=== PATIENT | female | born 1945 | race Caucasian/White ===

== ENCOUNTER 2020-12-18 13:12 | Inpatient (IN) | payer MEDICARE, MEDICAID ==
[2020-12-18 14:45] VITALS: BMI 39.9
[2020-12-18] MEDS ORDERED: Ondansetron PF 4 MG/2 ML Vial IVP PRN (16:26)
[2020-12-18] MEDS ORDERED: Dextrose 50% Abboject 50 ML SYRINGE SLOW IVP PRN (16:26)
[2020-12-18] MEDS ORDERED: Dextrose 5% in Water 1,000 ML IV PRN (16:26)
[2020-12-18] MEDS ORDERED: Lorazepam 2 MG/ML VIAL SLOW IVP PRN (16:30)
[2020-12-18] MEDS ORDERED: Potassium Chloride 20 MEQ TAB PO SCH (16:45)
[2020-12-18] MEDS ORDERED: Lorazepam 2 MG/ML VIAL SLOW IVP SCH (17:00)
[2020-12-18 17:51] LABS: Magnesium 1.6 mg/dL (1.6-2.6)
[2020-12-18] MEDS: Arformoterol 15 MCG/2 ML NEB NEB SCH (19:47)
[2020-12-18] MEDS: Budesonide 0.25 MG/2 ML NEB NEB SCH (19:47)
[2020-12-18 20:37] LABS: Hemoglobin A1c 9.4 % (4.0-6.0)
[2020-12-18] MEDS: Loratadine 10 MG TAB PO SCH (22:10)
[2020-12-18] MEDS: guaiFENesin ER 600 MG TAB PO SCH (22:10)
[2020-12-18] MEDS: Montelukast Sodium 10 mg Tablet PO SCH (22:11)
[2020-12-19] MEDS: Acetaminophen 325 MG TAB PO PRN (03:58)
[2020-12-19 04:43] LABS: #Basophils 0.1 10x3/uL (0.0-0.2); #Eosinphils 0.2 10x3/uL (0.0-0.5); #Monocytes 0.8 10x3/uL (0.0-1.1); #Neutrophils 5.5 10x3/uL (1.5-8.4); %Basophils 0.6 % (0.0-2.0); %Lymphocytes 26.5 % (18.0-47.0); %Monocytes 8.8 % (0.0-10.0); %Neutrophils 61.9 % (40.0-75.0); Hemoglobin 13.1 g/dL (12.0-15.5); Mean Corpuscular HGB CONC 32.5 g/dL (32.0-36.0); Mean Corpuscular Volume 89.4 fl (81.6-98.3); Mean Platelet Volume 9.5 fl (7.4-10.4); Platelet Count 316 10x3/uL (150-450); RBC Distribution Width 13.7 % (11.5-14.5); Red Blood Cell (RBC) Count 4.51 10x6/uL (3.90-5.03); White Blood Cell (WBC) Count 8.9 10x3/uL (3.5-10.5)
[2020-12-19 04:59] LABS: BUN (Urea Nitrogen) 34 mg/dL (9.8-20.1); Calc. Creatinine Clearance 69 mL/min (70-130); Calcium 9.6 mg/dL (7.8-10.44); Glucose 259 mg/dL (83-110)
[2020-12-19 05:07] LABS: Anion Gap 20 mmol/L (10-20); Carbon Dioxide 36 mmol/L (23-31); Chloride 83 mmol/L (98-107); Potassium 3.1 mmol/L (3.5-5.1); Sodium 136 mmol/L (136-145)
[2020-12-19] MEDS: Budesonide 0.25 MG/2 ML NEB NEB SCH (06:20)
[2020-12-19] MEDS: Arformoterol 15 MCG/2 ML NEB NEB SCH ×2 (06:20→20:00)
[2020-12-19] MEDS: guaiFENesin ER 600 MG TAB PO SCH ×2 (09:23→23:16)
[2020-12-19] MEDS: Clopidogrel Bisulfate 75 MG TAB PO SCH (09:23)
[2020-12-19] MEDS: Aspirin 81 mg Enteric Coated Tablet PO SCH (09:23)
[2020-12-19] MEDS: Lantus 1000 UNITS/10 ML VIAL SC SCH (09:23)
[2020-12-19] MEDS: Furosemide 40 MG TAB PO SCH (09:23)
[2020-12-19 11:54] LABS: SARS-CoV-2 PCR by NAA Not Detected (NotDetected)
[2020-12-19] MEDS: HumaLOG 300 UNITS/3 ML VIAL SC PRN ×2 (12:26→23:19)
[2020-12-19] MEDS ORDERED: Communication Order-Pharmacy FS ONE (12:56)
[2020-12-19] MEDS ORDERED: Magnesium Oxide 400 MG TAB PO SCH (15:00)
[2020-12-19] MEDS: Potassium Chloride 20 MEQ TAB PO SCH (15:42)
[2020-12-19] MEDS: Enoxaparin Sodium 100 MG/ML SYRINGE SC SCH (23:15)
[2020-12-19] MEDS: Famotidine 20 MG TAB PO SCH (23:15)
[2020-12-19] MEDS: Loratadine 10 MG TAB PO SCH (23:16)
[2020-12-19] MEDS: Montelukast Sodium 10 mg Tablet PO SCH (23:16)
[2020-12-20] MEDS: Acetaminophen 325 MG TAB PO PRN ×2 (00:50→23:07)
[2020-12-20] MEDS ORDERED: Melatonin 3 MG TAB PO SCH ×2 (01:00→23:15)
[2020-12-20] MEDS: Budesonide 0.25 MG/2 ML NEB NEB SCH ×3 (01:00→18:49)
[2020-12-20 04:33] LABS: #Basophils 0.1 10x3/uL (0.0-0.2); #Eosinphils 0.3 10x3/uL (0.0-0.5); #Monocytes 0.8 10x3/uL (0.0-1.1); #Neutrophils 5.1 10x3/uL (1.5-8.4); %Basophils 0.6 % (0.0-2.0); %Monocytes 9.3 % (0.0-10.0); %Neutrophils 56.7 % (40.0-75.0); Hemoglobin 13.4 g/dL (12.0-15.5); Mean Corpuscular HGB CONC 32.4 g/dL (32.0-36.0); Mean Corpuscular Hemoglobin 29.1 pg (27.0-33.0); Mean Corpuscular Volume 89.8 fl (81.6-98.3); Mean Platelet Volume 9.4 fl (7.4-10.4); Platelet Count 327 10x3/uL (150-450); RBC Distribution Width 13.5 % (11.5-14.5); Red Blood Cell (RBC) Count 4.61 10x6/uL (3.90-5.03)
[2020-12-20 04:44] LABS: ALT (SGPT) 24 U/L (8-55); AST (SGOT) 24 U/L (5-34); Albumin 3.5 g/dL (3.4-4.8); Alkaline Phosphatase 79 U/L (40-110); BUN (Urea Nitrogen) 30 mg/dL (9.8-20.1); Bilirubin, Total 0.4 mg/dL (0.2-1.2); Calc. Creatinine Clearance 76 mL/min (70-130); Calcium 9.4 mg/dL (7.8-10.44); Cholesterol 183 mg/dl (< 200 Desired); Globulin 3.5 g/dL (2.4-3.5); Glucose 175 mg/dL (83-110); HDL Cholesterol 26 mg/dL (>60 Neg Risk); LDL Cholesterol, Calculated 119 mg/dL; Magnesium 1.7 mg/dL (1.6-2.6); Triglycerides 190 mg/dL (Less than 150)
[2020-12-20 04:52] LABS: Anion Gap 19 mmol/L (10-20); Carbon Dioxide 35 mmol/L (23-31); Chloride 85 mmol/L (98-107); Sodium 136 mmol/L (136-145)
[2020-12-20] MEDS ORDERED: Budesonide 0.5 MG/2 ML NEB ONE (06:48)
[2020-12-20] MEDS: Arformoterol 15 MCG/2 ML NEB NEB SCH ×2 (06:55→18:49)
[2020-12-20] MEDS: Famotidine 20 MG TAB PO SCH ×2 (08:01→23:06)
[2020-12-20] MEDS: guaiFENesin ER 600 MG TAB PO SCH ×2 (08:01→23:06)
[2020-12-20] MEDS: Furosemide 40 MG TAB PO SCH (08:01)
[2020-12-20] MEDS: Enoxaparin Sodium 100 MG/ML SYRINGE SC SCH (08:01)
[2020-12-20] MEDS: Ezetimibe 10 MG TAB PO SCH (08:01)
[2020-12-20] MEDS: Potassium Chloride 20 MEQ TAB PO SCH ×2 (08:01→16:35)
[2020-12-20] MEDS: Aspirin 81 mg Enteric Coated Tablet PO SCH (08:01)
[2020-12-20] MEDS: Magnesium Oxide 400 MG TAB PO SCH (08:01)
[2020-12-20] MEDS: Clopidogrel Bisulfate 75 MG TAB PO SCH (08:01)
[2020-12-20] MEDS: Lantus 1000 UNITS/10 ML VIAL SC SCH (08:02)
[2020-12-20 09:18] LABS: #Basophils 0.1 10x3/uL (0.0-0.2); #Eosinphils 0.2 10x3/uL (0.0-0.5); #Monocytes 0.7 10x3/uL (0.0-1.1); #Neutrophils 4.4 10x3/uL (1.5-8.4); %Basophils 0.7 % (0.0-2.0); %Eosinophils 2.4 % (0.0-6.0); %Lymphocytes 39.4 % (18.0-47.0); %Monocytes 7.6 % (0.0-10.0); %Neutrophils 49.7 % (40.0-75.0); Hemoglobin 13.9 g/dL (12.0-15.5); Mean Corpuscular HGB CONC 32.2 g/dL (32.0-36.0); Mean Corpuscular Hemoglobin 28.9 pg (27.0-33.0); Mean Corpuscular Volume 89.8 fl (81.6-98.3); Mean Platelet Volume 9.9 fl (7.4-10.4); Platelet Count 365 10x3/uL (150-450); RBC Distribution Width 13.3 % (11.5-14.5); Red Blood Cell (RBC) Count 4.81 10x6/uL (3.90-5.03); White Blood Cell (WBC) Count 8.9 10x3/uL (3.5-10.5)
[2020-12-20 09:33] LABS: Hemoglobin A1c 9.5 % (4.0-6.0)
[2020-12-20 09:39] LABS: Anion Gap 18 mmol/L (10-20); BUN (Urea Nitrogen) 25 mg/dL (9.8-20.1); Calc. Creatinine Clearance 84 mL/min (70-130); Calcium 9.6 mg/dL (7.8-10.44); Carbon Dioxide 36 mmol/L (23-31); Chloride 84 mmol/L (98-107); Glucose 202 mg/dL (83-110); Magnesium 1.8 mg/dL (1.6-2.6); Potassium 3.3 mmol/L (3.5-5.1); Sodium 135 mmol/L (136-145)
[2020-12-20 09:53] LABS: Phosphorus 2.9 mg/dL (2.3-4.7)
[2020-12-20] MEDS: HumaLOG 300 UNITS/3 ML VIAL SC PRN ×2 (12:07→17:34)
[2020-12-20] MEDS ORDERED: Potassium Chloride 20 MEQ TAB PO SCH (12:30)
[2020-12-20] MEDS: Montelukast Sodium 10 mg Tablet PO SCH (23:06)
[2020-12-20] MEDS: Apixaban 5 MG TAB PO SCH (23:06)
[2020-12-20] MEDS: Loratadine 10 MG TAB PO SCH (23:07)
[2020-12-21 05:00] LABS: #Basophils 0.1 10x3/uL (0.0-0.2); #Eosinphils 0.3 10x3/uL (0.0-0.5); #Monocytes 0.8 10x3/uL (0.0-1.1); #Neutrophils 4.4 10x3/uL (1.5-8.4); %Basophils 0.6 % (0.0-2.0); %Eosinophils 3.2 % (0.0-6.0); %Lymphocytes 34.5 % (18.0-47.0); %Monocytes 8.9 % (0.0-10.0); %Neutrophils 52.6 % (40.0-75.0); Hemoglobin 12.5 g/dL (12.0-15.5); Mean Corpuscular HGB CONC 31.6 g/dL (32.0-36.0); Mean Corpuscular Hemoglobin 28.9 pg (27.0-33.0); Mean Corpuscular Volume 91.2 fl (81.6-98.3); Mean Platelet Volume 9.3 fl (7.4-10.4); Platelet Count 319 10x3/uL (150-450); RBC Distribution Width 13.4 % (11.5-14.5); Red Blood Cell (RBC) Count 4.33 10x6/uL (3.90-5.03); White Blood Cell (WBC) Count 8.4 10x3/uL (3.5-10.5)
[2020-12-21 05:17] LABS: ALT (SGPT) 22 U/L (8-55); AST (SGOT) 22 U/L (5-34); Albumin 3.4 g/dL (3.4-4.8); Alkaline Phosphatase 72 U/L (40-110); Anion Gap 15 mmol/L (10-20); BUN (Urea Nitrogen) 29 mg/dL (9.8-20.1); Bilirubin, Total 0.4 mg/dL (0.2-1.2); Calc. Creatinine Clearance 66 mL/min (70-130); Calcium 9.2 mg/dL (7.8-10.44); Carbon Dioxide 37 mmol/L (23-31); Chloride 90 mmol/L (98-107); Globulin 3.1 g/dL (2.4-3.5); Glucose 133 mg/dL (83-110); Phosphorus 2.5 mg/dL (2.3-4.7); Potassium 3.6 mmol/L (3.5-5.1); Protein, Total 6.5 g/dL (5.8-8.1); Sodium 138 mmol/L (136-145)
[2020-12-21] MEDS: Budesonide 0.25 MG/2 ML NEB NEB SCH (07:20)
[2020-12-21] MEDS: Arformoterol 15 MCG/2 ML NEB NEB SCH (07:20)
[2020-12-21] MEDS: Magnesium Oxide 400 MG TAB PO SCH ×2 (08:49→08:50)
[2020-12-21] MEDS: Potassium Chloride 20 MEQ TAB PO SCH (08:49)
[2020-12-21] MEDS: Famotidine 20 MG TAB PO SCH (08:52)
[2020-12-21] MEDS: Ezetimibe 10 MG TAB PO SCH (08:52)
[2020-12-21] MEDS: guaiFENesin ER 600 MG TAB PO SCH (08:52)
[2020-12-21] MEDS: Furosemide 40 MG TAB PO SCH (08:52)
[2020-12-21] MEDS: Apixaban 5 MG TAB PO SCH (08:52)
[2020-12-21] MEDS: Clopidogrel Bisulfate 75 MG TAB PO SCH (08:52)
[2020-12-21] MEDS: Lantus 1000 UNITS/10 ML VIAL SC SCH (08:53)
[2020-12-21 09:13] VITALS: TEMP 97.5
[2020-12-21 11:56] VITALS: BP 117/52
== END 2020-12-21 15:11 | disposition home or self-care (01) | DRG 64 ==
LOC: CSHTELE 13:12 → OBSVTOIN 12-19 14:40
PROVIDERS: ADMIT Internal Medicine; ATTEND Family Medicine
DX: I63.511 Cerebral infarction due to unspecified occlusion or stenosis of right middle cerebral artery (principal); L89.153 Pressure ulcer of sacral region, stage 3; I48.92 Unspecified atrial flutter; I50.32 Chronic diastolic (congestive) heart failure; G81.94 Hemiplegia, unspecified affecting left nondominant side; I13.0 Hypertensive heart and chronic kidney disease with heart failure and stage 1 through stage 4 chronic kidney disease, or unspecified chronic kidney disease; Z20.822 Contact with and (suspected) exposure to COVID-19; I25.10 Atherosclerotic heart disease of native coronary artery without angina pectoris; E66.01 Morbid (severe) obesity due to excess calories; E78.5 Hyperlipidemia, unspecified; I65.22 Occlusion and stenosis of left carotid artery; N18.30 Chronic kidney disease, stage 3 unspecified; E11.22 Type 2 diabetes mellitus with diabetic chronic kidney disease; K21.9 Gastro-esophageal reflux disease without esophagitis; J43.9 Emphysema, unspecified; Z88.5 Allergy status to narcotic agent; Z88.1 Allergy status to other antibiotic agents; Z91.040 Latex allergy status; Z88.8 Allergy status to other drugs, medicaments and biological substances; Z79.82 Long term (current) use of aspirin; Z79.02 Long term (current) use of antithrombotics/antiplatelets; Z85.51 Personal history of malignant neoplasm of bladder; Z90.49 Acquired absence of other specified parts of digestive tract; Z98.51 Tubal ligation status; Z98.890 Other specified postprocedural states; Z68.39 Body mass index [BMI] 39.0-39.9, adult
CPT/HCPCS: 36415; 36416; 70551; 80048; 80053; 80061; 83036; 83735; 84100; 85025; 93005; 93010; 93306; 93880; 94640; 94760; 96374; G0378; J1650; J1815; J2060; J7620; J7626; U0003; U0005